=== PATIENT | male | born 1940 | race Asian ===

== ENCOUNTER 2017-06-15 04:33 | Emergency (ER) | payer MEDICARE ==
[~2017-06-15] VITALS: Ht 165.1 cm; Wt 69.9 kg
[2017-06-15] MEDS ORDERED: METO200T5 PO (04:46)
[2017-06-15 05:24] LABS: HEMATOCRIT 41.9 % (39.2-51.8); HEMOGLOBIN 14.1 g/dL (13.7-18.0); WHITE BLOOD COUNT 22.2 x10^3/uL (3.4-10)
[2017-06-15 05:40] LABS: ASPARTATE AMINO TRANSFERASE 18 U/L (15-37); BLOOD UREA NITROGEN 12 mg/dL (7-18)
[2017-06-15 06:14] VITALS: BP 154/75
[2017-06-15] MEDS ORDERED: LEVOFLOXACIN 500 MG TABLET PO ONE (07:30)
== END 2017-06-15 08:17 | disposition home or self-care (01) ==
LOC: ED 04:51
DX: N45.1 Epididymitis (principal); N39.0 Urinary tract infection, site not specified; D72.828 Other elevated white blood cell count; I10 Essential (primary) hypertension; Z87.891 Personal history of nicotine dependence; Z85.51 Personal history of malignant neoplasm of bladder
CPT/HCPCS: 36415; 51700; 76870; 80053; 81001; 85025; 87077; 87086; 87186